=== PATIENT | male | born 2000 | race Caucasian/White ===

== ENCOUNTER 2018-04-24 10:01 | Emergency (ER) | payer OTHER ==
[~2018-04-24] VITALS: Ht 182.9 cm; Wt 116.1 kg
[2018-04-24 10:13] VITALS: BP 148/88
[2018-04-24] MEDS ORDERED: ONDANSETRON HCL4 M2 PO (10:20)
== END 2018-04-24 10:24 | disposition home or self-care (01) ==
LOC: M.ERS 10:01
DX: J06.9 Acute upper respiratory infection, unspecified (principal)